=== PATIENT | male | born 1970 | race Caucasian/White ===

== ENCOUNTER 2022-03-31 09:51 | Outpatient (CLI) | payer OTHER, SELFPAY ==
[2022-03-31 13:45] LABS: Albumin* 4.7 g/dL (3.3-5.0); Chloride* 104 mmol/L (96-114)
[2022-03-31 13:46] LABS: Potassium* 4.3 mmol/L (3.6-5.1); Sodium* 138 mmol/L (135-149)
[2022-03-31 13:48] LABS: Alanine Aminotransferase* 184 U/L (4-50); Alkaline Phosphatase* 108 U/L (40-150); Aspartate Amino Transferase* 90 U/L (12-35); Bilirubin Total* 0.8 mg/dL (0.1-1.5); Blood Urea Nitrogen* 15 mg/dL (7-30); Carbon Dioxide* 27 mmol/L (20-32); Cholesterol* 204 mg/dL (90-199); Creatinine* 0.8 mg/dL (0.5-1.5); Estimated Glomerular Filt Rate 106 ml/min; Glucose* 102 mg/dL (60-115); Total Protein* 7.4 g/dL (6.0-8.3); Triglycerides* 175 mg/dL (40-149)
[2022-03-31 13:49] LABS: Calcium* 9.5 mg/dL (8.4-10.6); HDL Cholesterol* 69 mg/dL (>=40); LDL Cholesterol Calculated 100 mg/dL (<100)
[2022-03-31 14:13] LABS: PSA Screen* 0.37 ng/mL (0.10-4.00)
== END 2022-03-31 09:52 | disposition home or self-care (01) ==
PROVIDERS: PCP Emergency Medicine; Visit Provider Physician Assistant Medical
DX: Z00.00 Encounter for general adult medical examination without abnormal findings (principal); I10 Essential (primary) hypertension; Z13.6 Encounter for screening for cardiovascular disorders; Z12.5 Encounter for screening for malignant neoplasm of prostate; Z13.29 Encounter for screening for other suspected endocrine disorder
CPT/HCPCS: 80053; 80061; 84153; 84443

== ENCOUNTER 2022-08-19 16:16 | Outpatient (CLI) | payer OTHER, SELFPAY ==
[2022-08-19 21:44] LABS: Albumin* 4.1 g/dL (3.3-5.0)
[2022-08-19 21:47] LABS: Aspartate Amino Transferase* 31 U/L (12-35); Bilirubin Direct* 0.2 mg/dL (0.0-0.5); Bilirubin Total* 0.5 mg/dL (0.1-1.5); Cholesterol* 174 mg/dL (90-199); Total Protein* 6.7 g/dL (6.0-8.3); Triglycerides* 107 mg/dL (40-149)
[2022-08-19 21:48] LABS: Alanine Aminotransferase* 37 U/L (4-50); Alkaline Phosphatase* 69 U/L (40-150); HDL Cholesterol* 64 mg/dL (>=40); LDL Cholesterol Calculated 89 mg/dL (<100)
[2022-08-19 22:27] LABS: HIV 1/2/P24 Combo Screen* Negative (Negative)
[2022-08-19 22:37] LABS: Hepatitis C Virus Antibody* Negative (Negative)
== END 2022-08-19 16:17 | disposition home or self-care (01) ==
LOC: LKVREF 16:17
PROVIDERS: PCP Physician Assistant Medical; Visit Provider Physician Assistant Medical
DX: R79.89 Other specified abnormal findings of blood chemistry (principal)
CPT/HCPCS: 80061; 80076; 86703; 86803

== ENCOUNTER 2023-06-23 10:30 | Outpatient (CLI) | payer OTHER, SELFPAY | END 2023-06-23 10:31 | disposition home or self-care (01) | LOC: NFLDREF 06-24 06:03 | PROVIDERS: PCP Physician Assistant Medical; Referring Provider Physician Assistant Medical; Visit Provider Physician Assistant Medical | DX: I10 Essential (primary) hypertension (principal); Z12.5 Encounter for screening for malignant neoplasm of prostate | CPT/HCPCS: 80053; 80061; 84153 ==

== ENCOUNTER 2023-06-23 14:30 | Outpatient (RCR) | payer OTHER, SELFPAY | END 2023-10-21 23:59 | disposition home or self-care (01) | PROVIDERS: PCP Physician Assistant Medical; Visit Provider Nurse Practitioner Family | DX: H81.11 Benign paroxysmal vertigo, right ear (principal); Z51.89 Encounter for other specified aftercare | CPT/HCPCS: 80053; 80061; 84153; 97110; 97140; 97161 ==

== ENCOUNTER 2024-04-27 14:27 | Outpatient (CLI) | payer OTHER, SELFPAY | END 2024-04-27 14:28 | disposition home or self-care (01) | PROVIDERS: PCP Physician Assistant Medical; Visit Provider Family Medicine | DX: I10 Essential (primary) hypertension (principal); Z13.220 Encounter for screening for lipoid disorders | CPT/HCPCS: 80048; 80061 ==

== ENCOUNTER 2025-02-20 16:40 | Outpatient (CLI) | payer OTHER, SELFPAY | END 2025-02-20 16:41 | disposition home or self-care (01) | LOC: LKVREF 16:40 | PROVIDERS: PCP Physician Assistant Medical; Visit Provider Physician Assistant | DX: R10.9 Unspecified abdominal pain (principal) | CPT/HCPCS: 87086 ==

== ENCOUNTER 2025-03-15 13:59 | Outpatient (CLI) | payer OTHER, SELFPAY | END 2025-03-15 14:00 | disposition home or self-care (01) | PROVIDERS: PCP Physician Assistant Medical; Visit Provider Family Medicine | DX: I10 Essential (primary) hypertension (principal); Z12.5 Encounter for screening for malignant neoplasm of prostate; Z13.6 Encounter for screening for cardiovascular disorders | CPT/HCPCS: 80048; 80061; G0103 ==